=== PATIENT | female | born 1985 | race Two or more races ===

== ENCOUNTER 2020-11-02 07:40 | Emergency (ER) | payer OTHER ==
[~2020-11-02] VITALS: Ht 152.4 cm; Wt 82.3 kg
[2020-11-02] MEDS ORDERED: ALBUTEROL/IPRATROPIUM 2.5MG/0.5MG, 3 ML NPPB ONE (08:00)
[2020-11-02] MEDS ORDERED: ALBUTEROL/IPRATROPIUM 2.5MG/0.5MG, 3 ML ONE (08:22)
--- NOTE | 2020-11-02 09:27 | NUR ---
HEALTH INFORMATION SYSTEMS TECHNICIAN AT BEDSIDE.
[2020-11-02 09:36] LABS: BASOPHILS % (AUTO) 0 % (0-1); EOSINOPHILS % (AUTO) 4 % (1-7); LYMPHOCYTES % (AUTO) 26 % (22-44); MEAN CORPUSCULAR HEMOGLOBIN 28.8 pg (27.0-34.8); MEAN CORPUSCULAR HGB CONC 33.9 g/dL (32.4-35.8); MEAN PLATELET VOLUME 7.6 fL (7.4-10.4); MONOCYTES % (AUTO) 5 % (2-9); NEUTROPHILS % (AUTO) 65 % (42-75); PLATELET COUNT 278 x10^3/uL (130-400); RED BLOOD COUNT 4.75 x10^6/uL (3.82-5.3); RED CELL DISTRIBUTION WIDTH 14.3 % (9.6-15.2)
[2020-11-02 09:44] LABS: ALBUMIN 3.7 g/dL (3.4-5.0); ANION GAP 9 mmol/L (5-15); CALCIUM 8.6 mg/dL (8.5-10.1); CHLORIDE 111 mmol/L (98-107); CREATININE 0.69 mg/dL (0.55-1.02)
--- NOTE | 2020-11-02 09:47 | NUR ---
PATIENT RESTING IN GURNEY, CONNECTED TO MONITOR, VSS, FAMILY AT BEDSIDE, CALL LIGHT WITHIN REACH, NO NEEDS AT THIS TIME. WAITING FOR LAB RESULTS.
--- NOTE | 2020-11-02 10:31 | NUR ---
20 GAUGE IV STARTED RIGHT AC FOR CTA, PATIENT CONNECTED TO MONITOR, VSS, FAMILY AT BEDSIDE, CALL LIGHT WITHIN REACH, NO FURTHER NEEDS AT THIS TIME.
[2020-11-02] MEDS ORDERED: OMNIPAQUE 350 MG/ML, 75ML BOTTLE ONE (11:21)
--- NOTE | 2020-11-02 12:05 | NUR ---
PATIENT SITT[facility] IN [facility], CONNECTED TO MONITORS, VSS, FAMILY AT BEDSIDE, CALL LIGHT WITHIN REACH. PATIENT UP FOR RECHECK.
--- NOTE | 2020-11-02 12:48 | NUR ---
BEDSIDE REPORT GIVEN TO SWETA RODAS FOR TRANSFER OF PATIENT CARE.
[2020-11-02 13:12] VITALS: BP 127/82
--- NOTE | 2020-11-02 13:14 | NUR ---
Patient/Caregiver given discharge instructions and they have confirmed that they understand the instructions. Patient ambulatory with steady gait. NAD, all questions answered appropriately, denies additional needs at this time. No personal belongings left in room after discharge.
== END 2020-11-02 13:18 | disposition home or self-care (01) ==
LOC: ED 12:27
DX: J98.01 Acute bronchospasm (principal); R06.02 Shortness of breath; R05 Cough; R07.89 Other chest pain
CPT/HCPCS: 36415; 71045; 71275; 80048; 82040; 84703; 85025; 85379; 93005; 94640; 99285; J7512; Q9967